=== PATIENT | male | born 1930 | race Caucasian/White ===

== ENCOUNTER → 2017-01-21 09:02 | Outpatient (CLI) | payer OTHER ==
[2017-01-21 10:02] LABS: APPEARANCE CLEAR (CLEAR); BILIRUBIN NEGATIVE (NEGATIVE); COLOR YELLOW (YELLOW); GLUCOSE NEGATIVE (NEGATIVE); KETONE NEGATIVE (NEGATIVE); LEUKOCYTE ESTERASE TRACE (NEGATIVE); NITRITE NEGATIVE (NEGATIVE); PROTEIN NEGATIVE (NEGATIVE)
[2017-01-21 10:04] LABS: BACTERIA MODERATE /hpf (NONE SEEN); EPITHELIAL CELLS 0-5 /hpf (0-5); RED CELLS - URINE 0-5 /hpf (0-5); WHITE CELLS - URINE 0-5 /hpf (0-5)
[2017-01-21 10:05] LABS: MUCUS <1+ /lpf (NONE SEEN)
[2017-01-21 10:16] LABS: ALBUMIN 3.5 g/dL (3.4-5.0); ANION GAP 12.1 mmol/L (8-16); BILIRUBIN - TOTAL 1.08 mg/dL (0.2-1.3); CALCIUM 8.9 mg/dL (8.5-10.1); CARBON DIOXIDE 29.5 mmol/L (21.0-32.0); CREATININE - SERUM 1.1 mg/dL (0.6-1.3); POTASSIUM - SERUM 4.6 mmol/L (3.5-5.1); PROTEIN - SERUM 7.9 g/dL (6.4-8.2)
--- NOTE | 2017-01-25 08:47 | EC ---
PATIENT:KENNY ORELLANA DATE OF SERVICE: 01/21/17 SEX: M MEDICAL RECORD: [id number] DATE OF : 34 LOCATION:D[facility] AGE OF PATIENT: 86 ADMISSION DATE: 01/21/17 REFERRING PHYSICIAN: INTERPRETING PHYSICIAN: YESSENIA PEREA MD ECHOCARDIOGRAM REPORT ECHO CHARGES 4 ECHO COMPLETE CLINICAL DIAGNOSIS: DIABETES/CAD/PRE-CHEMOTHERAPY ECHOCARDIOGRAPHIC MEASUREMENTS (adult normal given) AC root (d.<3.7cm) 3.5 LV Septum d (<1.2 cm> 1.1 Valve Excursion 2.2 LV Septum (systole) 1.9 Left Atria (s.<4.0cm> 3.4 LVPW d(<1.2cm) 1.2 RV (d.<2.3cm) 2.4 LVPW (sytole) 1.7 LV diastole(<5.6CM) 5.5 MV E-F(>70mm/sec) LV systole 3.2 LVOT Diameter 2.1 MV exc.(>10mm) Est.ejection fraction (50-75%) Pericardial Effusion N DOPPLER: LVIT A 77.0 E 69.0 LA RVSP 51.0 LVOT 111 AOP1/2T Asc. Ao 130 RVOT 41.0 RA PA 87.0 AV Gradient Peak 6.8 AV Mean 2.9 AV Area 3.0 MV Gradient Peak 4.3 MV Mean 1.5 MV Area COMMENTS: Personal Banking Assistant: Mike CORRALESOE Research And Development Technician:1 Dr. Perea TAPE# PACS DATE OF SERVICE: 01/21/2017 Echocardiogram FINDINGS: 1. Left ventricular chamber size is within normal limits. Left ventricular systolic function is normal. Overall ejection fraction estimated at 55%. 2. Left atrium is within normal limits at 3.4 cm. Right atrium and right ventricular chamber sizes are mildly dilated. 3. Valvular structures have normal structure and motion. ECHOCARDIOGRAM REPORT [id number] KENNY ORELLANA 4. Doppler interrogation reveals mild mitral regurgitation, moderate tricuspid regurgitation, no other valvular insufficiency or stenosis. Pulmonary systolic pressure is mildly elevated estimated at 51 mmHg. 5. No evidence of pericardial effusion or left ventricular thrombus. TRANSINT:[id number] Voice Confirmation ID: [id number] DOCUMENT ID: [id number] YESSENIA PEREA MD at 0847 CC: [id number] DICTATION DATE: 01/21/17 1210 [place] SHARPENER: 01/21/17 1245 DEP CLI 01/21/17 [place] [id number] [place] [id number]
== END | disposition home or self-care (01) ==
LOC: D.ECHO 01-15 09:00 → D.LAB 01-15 10:00 → D.ECHO 09:02
PROVIDERS: Physical Medicine & Rehabilitation
DX: I25.10 Atherosclerotic heart disease of native coronary artery without angina pectoris (principal); E11.9 Type 2 diabetes mellitus without complications